=== PATIENT | female | born 1960 | race Caucasian/White ===

== ENCOUNTER 2023-10-03 12:42 | Emergency (ER) | payer OTHER ==
[~2023-10-03] VITALS: Ht 175.3 cm; Wt 73.5 kg
[2023-10-03] MEDS ORDERED: NEOM10DR11 EACH EAR (13:30)
[2023-10-03] MEDS ORDERED: AMOX500C2 PO (13:30)
[2023-10-03 13:36] VITALS: BP 122/66; TEMP 97.9; O2SAT 100
== END 2023-10-03 13:36 | disposition home or self-care (01) ==
LOC: ER 12:42
DX: H66.92 Otitis media, unspecified, left ear (principal)